=== PATIENT | female | born 1950 | race Caucasian/White ===

== ENCOUNTER 2016-03-24 10:06 | Observation (INO) | payer OTHER, MEDICARE ==
[~2016-03-24] VITALS: Ht 174 cm; Wt 117.0 kg
[~2016-03-24 10:06] MED LIST: ANALGESIC325 MG PO; ASPIR-LOW81 MG PO; BENICAR HCT 401 EAC1 PO; BENICAR40 MG PO; Benicar HCT 40/25 PO; Ecotrin PO; HYZAAR 100-21 TABLET PO; LASIX20 MG PO; LIPITOR20 MG PO; LOW DOSE ASPIRI81 M1 PO; Lipitor PO; PEPCID40 MG PO; PLAVIX75 MG PO; PRAVACHOL40 MG PO; PRAVASTATIN SOD20 MG PO; PREMARIN0.3 MG PO; SALINE NOSE SPR45 M1 BOTH NARES; TYLENOL 8 HOUR650 MG PO; TYLENOL EXTRA500 MG PO; ZYRTEC10 M2 PO; ZYRTEC10 M3 PO
[2016-03-24 10:56] LABS: BASOPHIL COUNT 0.1 K/uL (0-0.1); EOSINOPHIL (%) 2.3 % (0-5); EOSINOPHIL COUNT 0.2 K/uL (0-0.3); HEMATOCRIT 41.1 % (36.0-46.0); IMMATURE GRANULOCYTE (%) 0.1 % (0.0-0.7); IMMATURE GRANULOCYTE COUNT 0.1 K/uL; MCH 29.2 PG (29.0-34.0); MCHC 32.8 G/DL (30.0-36.0); MEAN PLAT.VOLUME 9.7 uM^3 (9.5-12.4); MONOCYTE (%) 8.3 % (3-12); MONOCYTE COUNT 0.6 K/uL (0-0.8); NEUTROPHIL (%) 61.9 % (45-76); NEUTROPHIL COUNT 4.5 K/uL (1.8-6.4); PLATELET COUNT 269 K/uL (156-360); RBC DIS.WIDTH-CV 13.7 % (11.8-14.6); RBC DIS.WIDTH-SD 43.5 % (39-53); RED BLOOD COUNT 4.62 M/uL (3.80-5.20); WHITE BLOOD COUNT 7.3 K/uL (4.1-10.2)
[2016-03-24 11:04] LABS: CHLORIDE 105 mEq/L (99-109); POTASSIUM 3.9 mEq/L (3.7-5.4); SODIUM 141 mEq/L (136-147)
[2016-03-24 11:05] LABS: PROTHROMBIN TIME 10.5 (9.2-11.2); PTT 25.8 (25-32)
[2016-03-24 11:06] LABS: GLUCOSE 101 mg/dL (70-99)
[2016-03-24 11:07] LABS: ANION GAP 12 MEQ/L (2-14)
[2016-03-24 11:10] LABS: GFR ESTIMATE (CALCULATED) > 59 mL/min/
[2016-03-24 11:11] LABS: UREA NITROGEN (BUN) 12 mg/dL (9-23)
[2016-03-24 11:17] LABS: TROP-I INTERPRETATION NEGATIVE; TROPONIN-I < 0.01 ng/mL (0.0-0.30)
[2016-03-24 11:43] LABS: HDL CHOLESTEROL 50 MG/DL (Desirable>=50); LDL CHOLESTEROL 113 mg/dL (Desirable<100); NON-HDL CHOLESTEROL 144 mg/dL (Desirable<160); TOTAL CHOLESTEROL 194 mg/dL (Desirable<200); TRIGLYCERIDES 156 MG/DL (Normal: <150)
[2016-03-24] MEDS ORDERED: SALINE NASAL SP45 ML BOTH NARES (11:54)
[2016-03-24 12:15] VITALS: BP 148/73
[2016-03-24] MEDS ORDERED: ATORVASTATIN CA40 MG PO (15:35)
[2016-03-25 07:40] LABS: Estimated Average Glucose 108 mg/dL (70-123); HEMOGLOBIN A1c (GLYCOHEMOGLOB) 5.4 % HGB (Below 5.7)
== END 2016-03-24 16:13 | disposition home or self-care (01) ==
LOC: EME 10:06 → EDOF 11:26 → 5WEST 12:01
PROVIDERS: Emergency Medicine
DX: R29.810 Facial weakness (principal); R20.0 Anesthesia of skin; R51 Headache; E78.5 Hyperlipidemia, unspecified; I10 Essential (primary) hypertension; Z86.73 Personal history of transient ischemic attack (TIA), and cerebral infarction without residual deficits; Z88.0 Allergy status to penicillin; Z88.8 Allergy status to other drugs, medicaments and biological substances; Z82.49 Family history of ischemic heart disease and other diseases of the circulatory system; Z79.02 Long term (current) use of antithrombotics/antiplatelets
CPT/HCPCS: 70450; 70551; 80048; 80061; 83036; 84484; 85025; 85610; 85730; 87651 90; 93005; 93880; 99281; 99285; G0378; J2060

== ENCOUNTER 2016-05-04 10:32 | Emergency (ER) | payer OTHER, MEDICARE ==
[~2016-05-04] VITALS: Ht 172.7 cm; Wt 117.9 kg
[~2016-05-04 10:32] MED LIST changes: +ATORVASTATIN CA40 MG PO; +SALINE NASAL SP45 ML BOTH NARES
[2016-05-04 11:08] LABS: HEMATOCRIT 41.7 % (36.0-46.0); MCH 29.1 PG (29.0-34.0); MCHC 32.1 G/DL (30.0-36.0); MCV 90.7 FL (83-99); MEAN PLAT.VOLUME 9.7 uM^3 (9.5-12.4); PLATELET COUNT 312 K/uL (156-360); RBC DIS.WIDTH-CV 13.3 % (11.8-14.6); WHITE BLOOD COUNT 8.2 K/uL (4.1-10.2)
[2016-05-04 11:08] LABS: ADD MIUA? YES; BILIRUBIN NEGATIVE; BLOOD NEGATIVE; COLOR STRAW ((YELLOW)); GLUCOSE (STRIP) NEGATIVE; KETONES NEGATIVE; LEUKOCYTES MODERATE; NITRITE NEGATIVE; PROTEIN (STRIP) NEGATIVE; SPECIFIC GRAVITY 1.003 (1.000-1.030); UROBILINOGEN 0.2 MG/DL (0.2-1.0)
[2016-05-04 11:11] LABS: BACTERIA RARE /HPF; EPITHELIAL CELLS RARE /HPF; MUCUS NONE SEEN /LPF; RED BLOOD CELLS 0-5 /HPF (0-5); UCUL ADDED? NO; WHITE BLOOD CELLS 0-5 /HPF (0-5)
[2016-05-04 11:18] LABS: CHLORIDE 101 mEq/L (99-109); POTASSIUM 3.7 mEq/L (3.7-5.4); SODIUM 138 mEq/L (136-147)
[2016-05-04 11:20] LABS: GLUCOSE 90 mg/dL (70-99)
[2016-05-04 11:21] LABS: ANION GAP 9 MEQ/L (2-14)
[2016-05-04 11:22] LABS: TOTAL BILIRUBIN 0.5 mg/dL (0.0-1.0)
[2016-05-04 11:24] LABS: ALKALINE PHOSPHATASE 94 IU/L (3-129); GFR ESTIMATE (CALCULATED) > 59 mL/min/
[2016-05-04 11:25] LABS: UREA NITROGEN (BUN) 11 mg/dL (9-23)
[2016-05-04] MEDS ORDERED: PRAVASTATIN SOD20 MG PO (13:07)
[2016-05-04] MEDS ORDERED: BENTYL20 MG PO (15:35)
[2016-05-04] MEDS ORDERED: IMODIUM A-D2 M2 PO (15:35)
[2016-05-04 16:11] VITALS: BP 121/89
== END 2016-05-04 16:22 | disposition home or self-care (01) ==
LOC: EME 10:32
DX: R10.30 Lower abdominal pain, unspecified (principal); R19.7 Diarrhea, unspecified; E78.5 Hyperlipidemia, unspecified; I10 Essential (primary) hypertension; K21.9 Gastro-esophageal reflux disease without esophagitis; Z86.73 Personal history of transient ischemic attack (TIA), and cerebral infarction without residual deficits; Z87.891 Personal history of nicotine dependence
CPT/HCPCS: 74176; 80053; 81003; 85027; 99281; 99285; J1885; J7030

== ENCOUNTER → 2016-05-16 | Outpatient (CLI) | payer OTHER, MEDICARE ==
[~2016-05-16] MED LIST changes: +BENTYL20 MG PO; +IMODIUM A-D2 M2 PO
== END | disposition home or self-care (01) ==
LOC: EKG 12:21
DX: I51.7 Cardiomegaly (principal); Z86.73 Personal history of transient ischemic attack (TIA), and cerebral infarction without residual deficits
CPT/HCPCS: 93306

== ENCOUNTER 2017-02-27 10:47 | Observation (INO) | payer OTHER, MEDICARE ==
[~2017-02-27] VITALS: Ht 174 cm; Wt 112.4 kg
[2017-02-27 15:42] LABS: HEMATOCRIT 42.3 % (36.0-46.0); HEMOGLOBIN 14.1 G/DL (11.9-15.5); MCH 30.1 PG (29.0-34.0); MCHC 33.3 G/DL (30.0-36.0); MCV 90.4 FL (83-99); PLATELET COUNT 268 K/uL (156-360); RBC DIS.WIDTH-CV 13.1 % (11.8-14.6); RBC DIS.WIDTH-SD 43.4 % (39-53); RED BLOOD COUNT 4.68 M/uL (3.80-5.20); WHITE BLOOD COUNT 8.2 K/uL (4.1-10.2)
[2017-02-27 15:54] LABS: CHLORIDE 104 mEq/L (99-109); POTASSIUM 4.1 mEq/L (3.7-5.4); SODIUM 140 mEq/L (136-147)
[2017-02-27 15:56] LABS: GLUCOSE 81 mg/dL (70-99)
[2017-02-27 15:59] LABS: CREATININE 0.8 mg/dL (0.6-1.3); GFR ESTIMATE (CALCULATED) > 59 mL/min/
[2017-02-27 16:00] LABS: UREA NITROGEN (BUN) 14 mg/dL (9-23)
[2017-02-27 19:36] LABS: HEMOGLOBIN A1c (GLYCOHEMOGLOB) 5.5 % HGB (Below 5.7)
[2017-02-27 19:42] VITALS: BP 130/58
[2017-02-27 19:42] LABS: HDL CHOLESTEROL 52 MG/DL (Desirable>=50); LDL CHOLESTEROL 128 mg/dL (Desirable<100); NON-HDL CHOLESTEROL 157 mg/dL (Desirable<160); TOTAL CHOLESTEROL 209 mg/dL (Desirable<200); TRIGLYCERIDES 146 MG/DL (Normal: <150)
[2017-02-27 23:28] VITALS: BP 123/61
[2017-02-28 04:21] VITALS: BP 98/52
[2017-02-28 07:24] VITALS: BP 102/61
[2017-02-28 11:57] VITALS: BP 124/72
== END 2017-02-28 14:02 | disposition home or self-care (01) ==
LOC: EME 10:47 → 5WEST 18:16 → EDOF 18:16 → ENRESERV 18:26 → 5WEST 19:33
PROVIDERS: Emergency Medicine; Internal Medicine
DX: G45.9 Transient cerebral ischemic attack, unspecified (principal); Z86.73 Personal history of transient ischemic attack (TIA), and cerebral infarction without residual deficits; I10 Essential (primary) hypertension; E78.5 Hyperlipidemia, unspecified; G43.109 Migraine with aura, not intractable, without status migrainosus; Z82.49 Family history of ischemic heart disease and other diseases of the circulatory system; Z90.710 Acquired absence of both cervix and uterus; Z88.0 Allergy status to penicillin; Z88.8 Allergy status to other drugs, medicaments and biological substances; Z79.02 Long term (current) use of antithrombotics/antiplatelets; Z87.891 Personal history of nicotine dependence
CPT/HCPCS: 70450; 70551; 80048; 80061; 83036; 85027; 99281; 99285; G0378; J2060

== ENCOUNTER 2017-08-04 10:28 | Emergency (ER) | payer OTHER, MEDICARE ==
[~2017-08-04] VITALS: Ht 174 cm; Wt 113.9 kg
[2017-08-04 10:59] LABS: HEMATOCRIT 39.6 % (36.0-46.0); HEMOGLOBIN 13.1 G/DL (11.9-15.5); MCHC 33.1 G/DL (30.0-36.0); MCV 90.8 FL (83-99); PLATELET COUNT 255 K/uL (156-360); RBC DIS.WIDTH-CV 12.9 % (11.8-14.6); RBC DIS.WIDTH-SD 43.4 % (39-53); RED BLOOD COUNT 4.36 M/uL (3.80-5.20); WHITE BLOOD COUNT 8.6 K/uL (4.1-10.2)
[2017-08-04 11:09] LABS: CHLORIDE 101 mEq/L (99-109); POTASSIUM 4.4 mEq/L (3.7-5.4); SODIUM 138 mEq/L (136-147)
[2017-08-04 11:11] LABS: GLUCOSE 100 mg/dL (70-99)
[2017-08-04 11:14] LABS: CREATININE 0.8 mg/dL (0.6-1.3); GFR ESTIMATE (CALCULATED) > 59 mL/min/
[2017-08-04 11:15] LABS: UREA NITROGEN (BUN) 15 mg/dL (9-23)
[2017-08-04 14:01] LABS: APPEARANCE CLEAR ((CLEAR)); BILIRUBIN NEGATIVE; BLOOD NEGATIVE; COLOR STRAW ((YELLOW)); GLUCOSE (STRIP) NEGATIVE; KETONES NEGATIVE; LEUKOCYTES SMALL; NITRITE NEGATIVE; PROTEIN (STRIP) NEGATIVE; SPECIFIC GRAVITY 1.005 (1.000-1.030); UROBILINOGEN 0.2 MG/DL (0.2-1.0)
[2017-08-04 14:03] LABS: BACTERIA RARE /HPF; EPITHELIAL CELLS RARE /HPF; MUCUS NONE SEEN /LPF; RED BLOOD CELLS 0-5 /HPF (0-5); UCUL ADDED? NO; WHITE BLOOD CELLS 0-5 /HPF (0-5)
[2017-08-04 15:32] VITALS: BP 141/74
== END 2017-08-04 15:34 | disposition home or self-care (01) ==
LOC: EME 10:28
PROVIDERS: Emergency Medicine
DX: H81.10 Benign paroxysmal vertigo, unspecified ear (principal); M54.5 Low back pain; K21.9 Gastro-esophageal reflux disease without esophagitis; I10 Essential (primary) hypertension; E78.5 Hyperlipidemia, unspecified; Z87.891 Personal history of nicotine dependence; Z86.73 Personal history of transient ischemic attack (TIA), and cerebral infarction without residual deficits; Z90.710 Acquired absence of both cervix and uterus; Z88.0 Allergy status to penicillin; Z88.1 Allergy status to other antibiotic agents; Z88.8 Allergy status to other drugs, medicaments and biological substances
CPT/HCPCS: 70450; 71046; 72100; 80048; 81003; 85027; 93005; 99281; 99285

== ENCOUNTER 2017-08-27 12:01 | Observation (INO) | payer OTHER, MEDICARE ==
[~2017-08-27] VITALS: Ht 172.7 cm; Wt 113.6 kg
[2017-08-27 15:25] LABS: BASOPHIL (%) 0.6 % (0-1); BASOPHIL COUNT 0.1 K/uL (0-0.1); EOSINOPHIL (%) 2.2 % (0-5); EOSINOPHIL COUNT 0.2 K/uL (0-0.3); HEMATOCRIT 42.2 % (36.0-46.0); HEMOGLOBIN 14.1 G/DL (11.9-15.5); IMMATURE GRANULOCYTE (%) 0.2 % (0.0-0.7); LYMPHOCYTE COUNT 1.8 K/uL (1.0-2.8); MCH 29.9 PG (29.0-34.0); MCHC 33.4 G/DL (30.0-36.0); MCV 89.6 FL (83-99); MONOCYTE (%) 6.5 % (3-12); MONOCYTE COUNT 0.5 K/uL (0-0.8); NEUTROPHIL (%) 68.5 % (45-76); NEUTROPHIL COUNT 5.6 K/uL (1.8-6.4); PLATELET COUNT 245 K/uL (156-360); RBC DIS.WIDTH-SD 42.3 % (39-53); RED BLOOD COUNT 4.71 M/uL (3.80-5.20); WHITE BLOOD COUNT 8.1 K/uL (4.1-10.2)
[2017-08-27 15:34] LABS: APPEARANCE CLEAR ((CLEAR)); BILIRUBIN NEGATIVE; BLOOD NEGATIVE; COLOR STRAW ((YELLOW)); GLUCOSE (STRIP) NEGATIVE; KETONES NEGATIVE; LEUKOCYTES LARGE; NITRITE NEGATIVE; PROTEIN (STRIP) NEGATIVE; SPECIFIC GRAVITY 1.005 (1.000-1.030); UROBILINOGEN 0.2 MG/DL (0.2-1.0)
[2017-08-27 15:42] LABS: ALBUMIN 4.5 g/dL (3.2-4.8)
[2017-08-27 15:43] LABS: CHLORIDE 103 mEq/L (99-109); POTASSIUM 4.4 mEq/L (3.7-5.4); SODIUM 141 mEq/L (136-147)
[2017-08-27 15:45] LABS: GLUCOSE 84 mg/dL (70-99); TOTAL PROTEIN 7.8 g/dL (6.4-8.3)
[2017-08-27 15:45] LABS: BACTERIA RARE /HPF; EPITHELIAL CELLS RARE /HPF; MUCUS NONE SEEN /LPF; RED BLOOD CELLS 0-5 /HPF (0-5); UCUL ADDED? YES; WHITE BLOOD CELLS 20-30 /HPF (0-5)
[2017-08-27 15:47] LABS: TOTAL BILIRUBIN 0.5 mg/dL (0.0-1.0)
[2017-08-27 15:48] LABS: ALKALINE PHOSPHATASE 96 IU/L (3-129)
[2017-08-27 15:49] LABS: CREATININE 0.8 mg/dL (0.6-1.3); GFR ESTIMATE (CALCULATED) > 59 mL/min/
[2017-08-27 15:50] LABS: AST (GOT) 22 IU/L (2-34); UREA NITROGEN (BUN) 14 mg/dL (9-23)
[2017-08-27 15:52] LABS: ALT (GPT) 20 IU/L (3-49)
[2017-08-27 15:57] LABS: TROP-I INTERPRETATION NEGATIVE; TROPONIN-I < 0.01 ng/mL (0.0-0.30)
[2017-08-27 16:52] LABS: HDL CHOLESTEROL 55 MG/DL (Desirable>=50); LDL CHOLESTEROL 123 mg/dL (Desirable<100); NON-HDL CHOLESTEROL 156 mg/dL (Desirable<160); TOTAL CHOLESTEROL 211 mg/dL (Desirable<200); TRIGLYCERIDES 163 MG/DL (Normal: <150)
[2017-08-27] MEDS ORDERED: TYLENOL EXTRA500 MG PO (18:10)
[2017-08-27] MEDS ORDERED: MECLIZINE HCL25 MG PO (18:11)
[2017-08-27 18:48] VITALS: BP 204/81
[2017-08-27 19:06] VITALS: BP 167/72
[2017-08-28 00:49] VITALS: BP 143/72
[2017-08-28 03:53] VITALS: BP 139/73
[2017-08-28 08:20] VITALS: BP 128/65
[2017-08-28 10:53] LABS: HEMOGLOBIN A1c (GLYCOHEMOGLOB) 5.5 % (Below 5.7)
== END 2017-08-28 10:21 | disposition home or self-care (01) ==
LOC: EME 12:01 → 4SOUTH 16:47 → EDOF 16:47 → 4SOUTH 16:47 → EDOF 16:47 → ENRESERV 16:50 → 4SOUTH 18:21 → ENRESERV 08-28 00:01 → CANRESERV 08-28 00:01 → 4SOUTH 08-28 00:07 → ENPENDDIS 08-28 09:14 → 4SOUTH 08-28 10:21
PROVIDERS: Emergency Medicine
DX: R51 Headache (principal); R47.81 Slurred speech; W22.8XXA Striking against or struck by other objects, initial encounter; Z86.73 Personal history of transient ischemic attack (TIA), and cerebral infarction without residual deficits; I10 Essential (primary) hypertension; E78.5 Hyperlipidemia, unspecified; Z87.891 Personal history of nicotine dependence; Z82.49 Family history of ischemic heart disease and other diseases of the circulatory system; Z80.3 Family history of malignant neoplasm of breast; Z88.0 Allergy status to penicillin; Z88.8 Allergy status to other drugs, medicaments and biological substances
CPT/HCPCS: 70450; 80053; 80061; 81003; 82948; 83036; 84484; 85025; 87086; 93005; 99281; 99285; G0378